=== PATIENT | female | born 1990 | race Caucasian/White ===

== ENCOUNTER 2019-07-14 05:15 | Inpatient (IN) | payer OTHER ==
[~2019-07-14] VITALS: Ht 157.5 cm; Wt 70.8 kg
[2019-07-14] MEDS ORDERED: OXYTOCIN/0.9 % SODIUM CHLORIDE 1,000 ML IV SCH ×2 (05:40→13:03)
[2019-07-14] MEDS ORDERED: TERBUTALINE SULFATE 1 MG/ML VIAL SUBCUT ONE (05:45)
[2019-07-14] MEDS ORDERED: NALBUPHINE HCL 10 MG/ML AMP IM PRN (05:45)
[2019-07-14 06:07] LABS: BASOPHILS # (AUTO) 0.1 K/uL (0.0-0.2); BASOPHILS % (AUTO) 0.5 % (0.0-2.0); EOSINOPHILS # (AUTO) 0.1 K/uL (0.0-0.4); EOSINOPHILS % (AUTO) 0.9 % (0.0-4.0); HEMATOCRIT 35.2 % (36-48); HEMOGLOBIN 12.3 g/dL (12.0-16.0); LYMPHOCYTES # (AUTO) 2.1 K/uL (1.0-5.5); LYMPHOCYTES % (AUTO) 13.1 % (20.5-51.5); MEAN CORPUSCULAR HEMOGLOBIN 34 pg (27-31); MEAN CORPUSCULAR HGB CONC 35 % (32-36); MEAN CORPUSCULAR VOLUME 96 fL (79.0-98.0); MONOCYTES # (AUTO) 1.1 K/uL (0.0-1.0); MONOCYTES % (AUTO) 7.2 % (1.7-9.3); NEUTROPHILS # (AUTO) 12.5 K/uL (1.8-7.7); NEUTROPHILS % (AUTO) 78.3 % (40.0-70.0); PLATELET COUNT (AUTO) 174 K/uL (130-430); RED BLOOD CELL COUNT(AUTO) 3.66 MIL/uL (4.2-6.2)
[2019-07-14 06:20] VITALS: BP_SYST 109
[2019-07-14] MEDS: LR 1,000 ML IV SCH ×2 (06:26→12:31)
[2019-07-14] MEDS ORDERED: OXYTOCIN 30 UNIT in LR 1,000 ML IV ONE (13:15)
[2019-07-14] MEDS ORDERED: OXYCODONE/ACETAMINOPHEN 5-325 TABLET PO PRN ×2 (13:15)
[2019-07-14] MEDS ORDERED: DERMOPLAST SPRAY TP PRN (13:15)
[2019-07-14] MEDS ORDERED: WITCH HAZEL LEAF 1 MED.PAD MED.PAD TP PRN (13:15)
[2019-07-14] MEDS: IBUPROFEN 800 MG TABLET PO PRN (17:30)
[2019-07-14] MEDS ORDERED: ONDANSETRON HCL 4 MG/2 ML VIAL ONE (19:05)
[2019-07-14] MEDS ORDERED: ONDANSETRON HCL 4 MG/2 ML VIAL IVP PRN (19:15)
[2019-07-14] MEDS ORDERED: TEMAZEPAM 15 MG CAPSULE PO PRN (21:00)
[2019-07-15] MEDS: IBUPROFEN 800 MG TABLET PO PRN ×3 (00:12→11:14)
[2019-07-15 07:27] LABS: BASOPHILS # (AUTO) 0.1 K/uL (0.0-0.2); BASOPHILS % (AUTO) 0.6 % (0.0-2.0); EOSINOPHILS # (AUTO) 0.1 K/uL (0.0-0.4); EOSINOPHILS % (AUTO) 0.6 % (0.0-4.0); HEMATOCRIT 31.3 % (36-48); HEMOGLOBIN 10.9 g/dL (12.0-16.0); LYMPHOCYTES # (AUTO) 1.9 K/uL (1.0-5.5); LYMPHOCYTES % (AUTO) 14.8 % (20.5-51.5); MEAN CORPUSCULAR HEMOGLOBIN 34 pg (27-31); MEAN CORPUSCULAR HGB CONC 35 % (32-36); MEAN CORPUSCULAR VOLUME 96 fL (79.0-98.0); MONOCYTES # (AUTO) 1.2 K/uL (0.0-1.0); MONOCYTES % (AUTO) 9.5 % (1.7-9.3); NEUTROPHILS # (AUTO) 9.4 K/uL (1.8-7.7); NEUTROPHILS % (AUTO) 74.5 % (40.0-70.0); PLATELET COUNT (AUTO) 156 K/uL (130-430); RED BLOOD CELL COUNT(AUTO) 3.25 MIL/uL (4.2-6.2); RED CELL DISTRIBUTION WIDTH 12.8 % (9.0-15.0); WHITE BLOOD COUNT (AUTO) 12.6 K/uL (4.8-10.8)
[2019-07-15] MEDS ORDERED: MINERAL OIL 30 ML UDC PO ONE (09:49)
[2019-07-15] MEDS ORDERED: LIDOCAINE PF 1% 30ML(POUR BTL) INJ ONE (09:49)
[2019-07-15] MEDS ORDERED: IBUP-1970 PO (12:06)
[2019-07-15] MEDS ORDERED: DOCU-144 PO (12:06)
[2019-07-15] MEDS ORDERED: FLU VACC QS2019-20 36MOS UP/PF 60 MCG/0.5 ML SYRINGE I.M. PRN (15:00)
== END 2019-07-15 18:00 | disposition home or self-care (01) | DRG 806 ==
LOC: SPU 05:15
PROVIDERS: ADMIT Specialist; ATTEND Specialist
PROC: 10E0XZZ Delivery of Products of Conception, External Approach (ICD-10-PCS; principal; 2019-07-14)
PROC: 0KQM0ZZ Repair Perineum Muscle, Open Approach (ICD-10-PCS; 2019-07-14)
PROC: 10907ZC Drainage of Amniotic Fluid, Therapeutic from Products of Conception, Via Natural or Artificial Opening (ICD-10-PCS; 2019-07-14)
PROC: 3E033VJ Introduction of Other Hormone into Peripheral Vein, Percutaneous Approach (ICD-10-PCS; 2019-07-14)
DX: O71.4 Obstetric high vaginal laceration alone (principal); R71.0 Precipitous drop in hematocrit; Z37.0 Single live birth; Z3A.39 39 weeks gestation of pregnancy
CPT/HCPCS: 36415; 81002-TC; 85025; 86592; 86886; 86900; 86901; J2001; J2300; J2405; J2590; J7120

== ENCOUNTER 2021-06-26 20:08 | Emergency (ER) | payer OTHER ==
[~2021-06-26] VITALS: Ht 157.5 cm; Wt 65.8 kg
[~2021-06-26 20:08] MED LIST: DOCU-144 PO; IBUP-1970 PO
[2021-06-26 20:20] VITALS: BP_SYST 129
--- NOTE | 2021-06-26 20:23 | NUR ---
Patient to ER bed 2 to gown for evaluation. Side rails up. Report given to JUDAH HUGHES.
--- NOTE | 2021-06-26 20:27 | NUR ---
ER at bedside examining patient.
--- NOTE | 2021-06-26 20:30 | NUR ---
PT ARRIVED TO ER WITH COMPLAINTS OF LEFT THUMB PAIN 02/13. PT WAS PUSHING SOMETHING AND FEELS HER THUMB GOT JAMMED. FELT IT WIGGLE TO THE LEFT. NOW ABOLE TO MOVE THUMB, BUT IT FEELS WEIRD. 1ST INCIDENT WITH THIS HAND OR THUMB.
--- NOTE | 2021-06-26 20:35 | NUR ---
XR AT BEDSIDE
[2021-06-26] MEDS ORDERED: IBUP-1969 PO (20:56)
[2021-06-26] MEDS ORDERED: HYDR-3917 PO (20:56)
[2021-06-26] MEDS ORDERED: HYDROcodone/ACETAMIN 5-325 MG TAB (NORCO/ VICODIN) PO ONE (21:00)
[2021-06-26] MEDS ORDERED: HYDROcodone/ACETAMIN 5-325 MG TAB (NORCO/ VICODIN) ONE (21:12)
[2021-06-26] MEDS ORDERED: IBUPROFEN 800 MG TABLET PO ONE (21:15)
[2021-06-26] MEDS ORDERED: IBUPROFEN 400 MG TABLET ONE (21:19)
--- NOTE | 2021-06-26 21:35 | NUR ---
Patient given written and verbal discharge instructions and verbalizes understanding. ER MD discussed with patient the results and treatment provided. Patient in stable condition. ID arm band removed. Rx of NORCO, IBUPROFEN given. Patient educated on pain management and to follow up with PMD. Pain Scale 5/10. Opportunity for questions provided and answered. Medication side effect fact sheet provided.
[2021-06-26 21:49] VITALS: BP_SYST 129
== END 2021-06-26 21:53 | disposition home or self-care (01) ==
LOC: SED 20:08
DX: S63.602A Unspecified sprain of left thumb, initial encounter (principal); W23.0XXA Caught, crushed, jammed, or pinched between moving objects, initial encounter; Y93.89 Activity, other specified; Y92.89 Other specified places as the place of occurrence of the external cause; Y99.8 Other external cause status
CPT/HCPCS: 99283